=== PATIENT | female | born 1965 | race African-American/Black ===

== ENCOUNTER 2018-07-09 13:49 | Inpatient (IN) | payer MEDICAID ==
[~2018-07-09] VITALS: Ht 165.1 cm; Wt 81.2 kg
[2018-07-09 16:39] LABS: BASOPHILS % 0.9 % (0.0-2.0); EOSINOPHILS % 0.5 % (0.0-5.0); HEMATOCRIT. 41.5 % (36.0-48.0); HEMOGLOBIN. 13.7 g/dL (12.0-16.0); LYMPHOCYTES % 29.8 % (20.0-50.0); MEAN CORPUSCULAR VOLUME 91.1 fL (81.0-99.0); MEAN PLATELET VOLUME 9.1 fl (7.4-10.4); MONOCYTES % 8.8 % (2.0-8.0); PLATELET 248 x1000/uL (130-400); RED BLOOD CELL COUNT 4.56 mill/uL (4.2-5.4); RED CELL DISTRIBUTION WIDTH 13.2 % (11.6-14.6)
[2018-07-09 16:45] LABS: CHLORIDE 108 mEq/L (98-107)
[2018-07-09 16:47] LABS: PARTIAL THROMBOPLASTIN TIME 28.7 sec (23.4-31.0); PROTHROMBIN TIME 10.7 sec (9.6-11.0)
[2018-07-09 16:49] LABS: ETHANOL BLOOD < 10 mg/dL
[2018-07-09] MEDS ORDERED: ONDANSETRON HCL 4MG/2ML INJ IV STA (16:56)
[2018-07-09] MEDS ORDERED: MORPHINE SULFATE 4 MG/ML CPJ (NOT FOR IM USE) IV STA (16:56)
[2018-07-09 17:04] LABS: CLARITY URINE CLOUDY (CLEAR); COLOR URINE YELLOW (YELLOW); KETONES URINE TRACE (NEGATIVE); LEUKOCYTE ESTERASE URINE 1+ (NEGATIVE); NITRITE URINE NEGATIVE (NEGATIVE); OCCULT BLOOD URINE NEGATIVE (NEGATIVE); PH URINE 5.5 (4.5-8.0); PROTEIN URINE NEGATIVE (NEGATIVE); SPECIFIC GRAVITY URINE 1.027 (1.005-1.030)
[2018-07-09 17:13] LABS: *AMPHETAMINES SCREEN URINE NEGATIVE (NEGATIVE); CANNABINOID URINE SCREEN NEGATIVE (NEGATIVE); OPIATES URINE SCREEN PRESUMTIVE POSITIVE (NEGATIVE); PHENCYCLIDINE URINE SCREEN NEGATIVE (NEGATIVE)
[2018-07-09 17:14] LABS: *BARBITURATES SCREEN URINE NEGATIVE (NEGATIVE); *BENZODIAZEPINES SCREEN URINE NEGATIVE (NEGATIVE); *COCAINE SCREEN URINE PRESUMTIVE POSITIVE (NEGATIVE); METHADONE URINE SCREEN NEGATIVE (NEGATIVE)
[2018-07-09 17:16] LABS: HCG SCREEN NEGATIVE
[2018-07-09] MEDS ORDERED: IOHEXOL-350 100 ML BOTTLE ONE (18:05)
[2018-07-09] MEDS ORDERED: ONDANSETRON HCL 4MG/2ML INJ IV PRN (18:45)
[2018-07-09] MEDS ORDERED: NITROGLYCERIN 0.4MG TABLET SL SL PRN (18:45)
[2018-07-09] MEDS ORDERED: DOCUSATE SODIUM 100MG CAPSULE PO PRN (18:45)
[2018-07-09] MEDS ORDERED: MAGNESIUM/ALUMINUM HYDROXIDE/SIMETHICONE 30ML UDC PO PRN (18:45)
[2018-07-09] MEDS ORDERED: ACETAMINOPHEN 325MG TABLET PO PRN (18:45)
[2018-07-09] MEDS ORDERED: IPRATROPIUM/ALBUTEROL 0.5-3(2.5)MG/3ML NEB INH PRN (18:45)
[2018-07-09] MEDS ORDERED: CLONIDINE 0.1MG TABLET PO PRN (18:45)
[2018-07-09] MEDS ORDERED: ZOLPIDEM TARTRATE 5MG TABLET PO PRN (18:45)
[2018-07-09] MEDS ORDERED: GUAIFENESIN 200MG/10ML SUGAR FREE UDC PO PRN (18:45)
[2018-07-09 21:30] VITALS: BP 149/83
[2018-07-09] MEDS ORDERED: HALOPERIDOL LACTATE 5MG/ML VIAL IM PRN (21:45)
[2018-07-09] MEDS ORDERED: AMLO5TAB88 PO (22:26)
[2018-07-09] MEDS ORDERED: ALBU18HF2 IH (22:27)
[2018-07-09] MEDS ORDERED: GABA-531 PO (22:29)
[2018-07-09] MEDS ORDERED: LEVOFLOXACIN 500MG PREMIX 100 ML IV SCH (22:30)
[2018-07-09] MEDS: FAMOTIDINE 20MG TABLET PO SCH (22:40)
[2018-07-09] MEDS: KETOROLAC 15MG/ML VIAL IV PRN (22:41)
[2018-07-09 23:55] LABS: CREATINE KINASE 64 IU/L (26-192)
[2018-07-09 23:56] LABS: CREATINE KINASE MB FRACTION < 1.0 ng/mL (0.5-3.6)
[2018-07-09 23:59] VITALS: BP 132/84
[2018-07-10 04:01] VITALS: BP 119/73
[2018-07-10 07:44] LABS: CREATINE KINASE 56 IU/L (26-192)
[2018-07-10 07:45] LABS: CREATINE KINASE MB FRACTION < 1.0 ng/mL (0.5-3.6)
[2018-07-10 07:54] VITALS: BP 123/79
[2018-07-10] MEDS: FAMOTIDINE 20MG TABLET PO SCH (08:24)
[2018-07-10] MEDS: KETOROLAC 15MG/ML VIAL IV PRN (08:59)
[2018-07-10] MEDS ORDERED: ASPIRIN 325MG EC TABLET PO SCH (09:00)
[2018-07-10] MEDS ORDERED: ENOXAPARIN 40MG/0.4ML SYR SUBCUT SCH (09:00)
[2018-07-10 09:14] VITALS: BP 122/81
[2018-07-10 12:12] VITALS: BP 129/79
[2018-07-10] MEDS ORDERED: LEVOFLOXACIN 500MG PREMIX 100 ML IV SCH (20:00)
== END 2018-07-10 15:10 | disposition home or self-care (01) | DRG 816 ==
LOC: ER 13:49 → 6WST 18:40 → EDBEDREQ 18:42 → ENRESERV 20:30
PROVIDERS: ADMIT Internal Medicine; ATTEND Internal Medicine
DX: T40.5X1A Poisoning by cocaine, accidental (unintentional), initial encounter (principal); E87.8 Other disorders of electrolyte and fluid balance, not elsewhere classified; F14.10 Cocaine abuse, uncomplicated; F99 Mental disorder, not otherwise specified; R07.89 Other chest pain; N39.0 Urinary tract infection, site not specified; I10 Essential (primary) hypertension; Y92.89 Other specified places as the place of occurrence of the external cause; Z71.51 Drug abuse counseling and surveillance of drug abuser
CPT/HCPCS: 36415; 71045; 71275; 80061; 80305; 80320; 82550; 82553; 83036; 83880; 84484; 84703; 85379; 93005; 96374; 96375; 99285; J1650; J1885; J1956; J2270; J2405; J7050; Q9967; G0480